=== PATIENT | female | born 1950 | race Caucasian/White ===

== ENCOUNTER 2021-07-12 14:31 | Outpatient (CLI) | payer MEDICARE | END 2021-07-12 23:59 | disposition home or self-care (01) | LOC: CFH 14:31 | PROVIDERS: ATTEND Internal Medicine | DX: N60.82 Other benign mammary dysplasias of left breast (principal); N63.32 Unspecified lump in axillary tail of the left breast; R22.32 Localized swelling, mass and lump, left upper limb | CPT/HCPCS: 76642; 77062; 77066; G0279 ==